=== PATIENT | female | born 1940 | race Caucasian/White ===

== ENCOUNTER 2017-02-08 01:18 | Emergency (ER) | payer MEDICARE, BC ==
[2017-02-08 01:31] VITALS: BP 158/71
--- NOTE | 2017-02-08 02:02 | EDM.PDOC ---
ED HPI GENERAL MEDICAL PROBLEM - General Chief Complaint: General Stated Complaint: HEADACHE BACK PAIN NAUSEA Time Seen by Provider: 02/08/17 01:26 Source of Information: Reports: Patient, Family () History Limitations: Reports: No Limitations - History of Present Illness INITIAL COMMENTS - FREE TEXT/NARRATIVE: The patient states that she developed a sore throat Saturday evening, 2016, then yesterday, , 02/07/2017, she developed a headache, nausea, and generalized pain. She states that her skin hurts, her muscles hurt, and her joints hurt. She has had a slight nonproductive cough. She thinks she might have had a fever, but has not checked her temperature. She is afebrile here in the ED, although feels warm to palpation. She denies recent dyspnea, chest pain , or palpitations. No URI symptoms, such as nasal or sinus congestion, or postnasal drip. No urinary symptoms, such as dysuria, urinary frequency, or urgency. No prior similar symptoms. The patient states that she took Coricidin around 16:00 yesterday afternoon and 20:00 last night. Her symptoms did not improve. The patient states that her daughter is being treated for cough, but the patient does not know what her diagnosis is. The patient did not receive an influenza vaccine this season. The patient's PCP is Dr. Rekha Dobson. Upper Back Pain Score (Numeric/FACES): 9 - Related Data Allergies Allergy/AdvReac Type Severity Reaction Status Date / Time Penicillins Allergy Hives Verified 02/08/17 01:30 Home Meds: Home Meds Aspirin [Ecotrin] 81 mg PO DAILY 03/02/16 [History] Levothyroxine 25 mcg PO DAILY 03/02/16 [History] Losartan [Cozaar] 100 mg PO DAILY 03/02/16 [History] Meloxicam 15 mg PO DAILY #14 tablet 03/02/16 [Rx] Tetrahydrz/Dext 70/Peg 400/Pvp [Eye Drops] 1 drop TOP BEDTIME 03/02/16 [History] amLODIPine [Norvasc] 5 mg PO DAILY 03/02/16 [History] Ondansetron [Zofran ODT] 4 mg PO Q8H PRN #10 tab.dis 02/08/17 [Rx] Oseltamivir [Tamiflu] 1 cap PO BID #9 cap 02/08/17 [Rx] Past Medical History HEENT History: Reports: Glaucoma Cardiovascular History: Reports: Hypertension Gastrointestinal History: Reports: GERD Musculoskeletal History: Reports: Arthritis, Back Pain, Chronic Endocrine/Metabolic History: Reports: Hypothyroidism, Obesity/BMI 30+ - Past Surgical History GI Surgical History: Reports: Cholecystectomy, Colonoscopy Female Surgical History: Reports: Breast Biopsy Musculoskeletal Surgical History: Reports: Other (See Below) Other Musculoskeletal Surgeries/Procedures:: back surgery, ankle surgery Social & Family History - Tobacco Use Smoking Status *Q: Never Smoker Second Hand Smoke Exposure: No - Caffeine Use Caffeine Use: Reports: None - Recreational Drug Use Recreational Drug Use: No - Living Situation & Occupation Living situation: Reports: Occupation: Retired ED ROS GENERAL - Review of Systems Review Of Systems: ROS reveals no pertinent complaints other than HPI. ED EXAM, GENERAL - Physical Exam Exam: See Below Exam Limited By: No Limitations General Appearance: Alert, WD/WN, No Apparent Distress Eye Exam: Bilateral Eye: Normal Inspection Ears: Normal External Exam, Normal Canal, Hearing Grossly Normal, Normal TMs Nose: Normal Inspection, Normal Mucosa, No Blood Throat/Mouth: Normal Inspection, Normal Lips, Normal Teeth, Normal Gums, Normal Oropharynx, Normal Voice Head: Atraumatic, Normocephalic Neck: Normal Inspection, Supple, Non-Tender, Full Range of Motion. No: Lymphadenopathy (L), Lymphadenopathy (R) Respiratory/Chest: No Respiratory Distress, Lungs Clear, Normal Breath Sounds, No Accessory Muscle Use Cardiovascular: Normal Peripheral Pulses, Regular Rate, Rhythm, No Edema, No Gallop, No JVD, No Murmur, No Rub Peripheral Pulses: 4+: Radial (L), Radial (R) GI/Abdominal: Normal Bowel Sounds, Soft, Non-Tender, No Organomegaly, No Distention, No Abnormal Bruit, No Mass, Other (Obese) (Female) Exam: Deferred Rectal (Female) Exam: Deferred Back Exam: Normal Inspection, Full Range of Motion, NT Extremities: Normal Inspection, Normal Range of Motion, No Pedal Edema, Normal Capillary Refill Neurological: Alert, Oriented, Normal Cognition, No Motor/Sensory Deficits Psychiatric: Normal Affect Skin Exam: Warm, Dry, Intact, Normal Color, No Rash Course - Vital Signs Last Recorded V/S: Last Vital Signs Temp 37.4 C 02/08/17 01:26 Pulse 96 02/08/17 01:26 Resp 20 02/08/17 01:26 BP 158/71 H 02/08/17 01:26 Pulse Ox 94 L 02/08/17 01:26 - Orders/Labs/Meds Orders: Active Orders 24 hr Category Date Time Status Chest 2V [CR] Stat Exams 02/08/17 01:55 Taken STREP SCRN A RAPID W CULT CONF [RM] Stat Lab 02/08/17 01:52 Results Labs: Laboratory Tests 02/08/17 02/08/17 Range/Units 02:20 02:20 WBC 6.11 (3.98-10.04) K/mm3 RBC 4.26 (3.98-5.22) M/mm3 Hgb 13.6 (11.2-15.7) gm/L Hct 39.9 (34.1-44.9) % MCV 93.7 (79.4-94.8) fl MCH 31.9 (25.6-32.2) pg MCHC 34.1 (32.2-35.5) g/dl RDW Std Deviation 41.0 (36.4-46.3) fL Plt Count 205 (182-369) K/mm3 MPV 10.5 (9.4-12.3) fl Neutrophils % (Manual) 74 H (40-60) % Band Neutrophils % 0 (0-10) % Lymphocytes % (Manual) 7 L (20-40) % Atypical Lymphs % 0 % Monocytes % (Manual) 19 H (2-10) % Eosinophils % (Manual) 0 L (0.7-5.8) % Basophils % (Manual) 0 L (0.1-1.2) Platelet Estimate Adequate RBC Morph Comment Normal Sodium 135 L (136-145) mEq/L Potassium 3.7 (3.5-5.1) mEq/L Chloride 100 (98-107) mEq/L Carbon Dioxide 22 (21-32) mEq/L Anion Gap 16.7 H (5-15) BUN 11 (7-18) mg/dL Creatinine 1.0 (0.55-1.02) mg/dL Est Cr Clr Drug Dosing 34.91 mL/min Estimated GFR (MDRD) 54 (>60) mL/min BUN/Creatinine Ratio 11.0 L (14-18) Glucose 116 H (83-115) mg/dL Calcium 8.8 (8.5-10.1) mg/dL Total Bilirubin 0.4 (0.2-1.0) mg/dL AST 22 (15-37) U/L ALT 26 (14-59) U/L Alkaline Phosphatase 70 (46-116) U/L Total Protein 7.7 (6.4-8.2) g/dl Albumin 3.8 (3.4-5.0) g/dl Globulin 3.9 gm/dL Albumin/Globulin Ratio 1.0 (1-2) Meds: Medications Discontinued Medications Generic Name Dose Route Start Last Admin Trade Name Freq PRN Reason Stop Dose Admin Ondansetron HCl 4 mg 02/08/17 03:28 02/08/17 03:32 Zofran Odt PO 02/08/17 03:29 4 mg ONETIME ONE Administration Oseltamivir Phosphate 75 mg 02/08/17 02:16 02/08/17 02:22 Tamiflu PO 02/08/17 02:17 75 mg ONETIME STA Administration - Re-Assessments/Exams Free Text/Narrative Re-Assessment/Exam: 02/08/17 02:17 The patient is positive for both Influenza A and Influenza B. Because her symptoms started less than 48 hours ago, I will start her on oral Tamiflu. 02/08/17 02:20 Two-view chest radiograph appears to be grossly normal. Cardiac silhouette is within normal limits. No pulmonary vascular congestion. No pleural effusions. No focal infiltrate. No pneumothorax. Formal read per the Radiologist pending. 02/08/17 02:56 Notified that the CMP will be delayed, as the laboratory machine is down. Someone is coming in to repair it. 02/08/17 04:44 The patient's chemistry panel looks good. I will discharge her home with prescriptions for both Tamiflu and Zofran. Departure - Departure Time of Disposition: 04:44 Disposition: Home, Self-Care 01 Condition: Fair Clinical Impression: Influenza A, Influenza B - Discharge Information Referrals: Rekha Dobson MD [Primary Care Provider] - Forms: ED Department Discharge Additional Instructions: You were seen in the emergency room for a sore throat, headache, nausea, slight cough, and general body aches. Workup in the ER included blood work, an influenza swab, a rapid strep test, and a chest x-ray. Your influenza test returned positive for both Influenza A and Influenza B. The remainder of your workup was unremarkable. You have been started on the anti-influenza medicine Tamiflu. Take one tablet every 12 hours, as prescribed. Dissolve one tablet of the anti-nausea medicine Zofran on your tongue up to every 8 hours, as needed for nausea/vomiting. You may take [id number] Tylenol or ibuprofen as needed for discomfort. Stay well hydrated. Gatorade or Powerade are best. We recommend that you notify the office of Dr. Dobson of your ER visit and influenza results. If any other problems, please do not hesitate to return to the ER. - My Orders Last 24 Hours: My Active Orders 02/08/17 01:52 STREP SCRN A RAPID W CULT CONF [RM] Stat 02/08/17 01:55 Chest 2V [CR] Stat - Assessment/Plan Last 24 Hours: My Active Orders 02/08/17 01:52 STREP SCRN A RAPID W CULT CONF [RM] Stat 02/08/17 01:55 Chest 2V [CR] Stat
[2017-02-08] MEDS ORDERED: Oseltamivir 75 MG Cap PO STA (02:16)
[2017-02-08] MEDS ORDERED: Ondansetron 4 MG/2 ML SDV IVPUSH ONE (03:23)
[2017-02-08] MEDS ORDERED: Ondansetron 4 MG Tab.DIS PO ONE (03:28)
--- NOTE | 2017-02-08 08:38 | CR ---
Chest: Two views of the chest were obtained. Comparison: Prior chest x-ray 03/02/16. Heart size is normal. Tortuous thoracic aorta is seen. Lungs are clear. Mild degenerative change is noted within the spine with slight scoliosis. Impression: 1. Incidental findings. Nothing acute is seen on two-view chest x-ray. Diagnostic code #2
== END 2017-02-08 05:00 | disposition home or self-care (01) ==
LOC: JD.ED 01:18
DX: J10.1 Influenza due to other identified influenza virus with other respiratory manifestations (principal); I10 Essential (primary) hypertension; K21.9 Gastro-esophageal reflux disease without esophagitis; Z88.0 Allergy status to penicillin; Z79.82 Long term (current) use of aspirin; Z79.899 Other long term (current) drug therapy
CPT/HCPCS: 36415; 71020; 80053; 85025; 87081; 87430; 87804; 99284; A9270; 99283

== ENCOUNTER 2020-10-31 09:01 | Day surgery (SDC) | payer MEDICARE, BC ==
[~2020-10-31 09:01] MED LIST: Lactated Ringers 1,000 ML IV SCH; Lidocaine 1%/Sod Bicarbonate in NS 8.4% 1 ML Syringe IDERM PRN; Morphine 8 MG, EPINEPHrine 0.3 MG, Cefuroxime 750 MG, Ketorolac 30 MG, Sodium Chloride ... PRN; Sodium Chloride 0.9% 10 ML Syringe FLUSH PRN
--- NOTE | 2020-10-31 09:24 | PCM.SN.2 ---
- Free Text/Narrative Note: Anesthesia Note: Right selective femoral nerve block at the adductor canal for post-procedure pain control under US guidance requested by Dr. Leung. Time Out: 1242 Start: 1242 End: 1245 Chart reviewed. Consent signed. Questions answered. Appropriate monitors applied. Time out performed. Right mid-shaft femur identified with ultrasound, scanning medially of femur, the femoral artery in the adductor canal visualized, and the femoral nerve located laterally to the artery. The skin was prepped lateral to the ultrasound probe with chlorahexadine times two. The 21ga 4 insulated block needle was inserted under direct ultrasound guidance into the adductor canal. 25 mL of 0.5% ropivacaine with 1:200,000 epinephrine was injected circumferentially around the nerve with intermittent negative aspiration noted. Patient tolerated the procedure well. Sterile technique noted along with sterile gloves, mask, and sterile probe cover. See picture on progress note and vital signs on nurses notes. Block completed in PACU. Sonya Fried CRNA
[2020-10-31] MEDS ORDERED: Ropivacaine 0.5% 5 MG/ML 30 ML SDV ONE (09:26)
[2020-10-31] MEDS ORDERED: EPINEPHrine 1 MG/ML SDV ONE (09:26)
[2020-10-31] MEDS ORDERED: Lactated Ringers 1,000 ML ONE ×2 (09:34→11:48)
[2020-10-31] MEDS ORDERED: Propofol 200 MG/20 ML SDV ONE (09:34)
[2020-10-31] MEDS ORDERED: Ondansetron 4 MG/2 ML SDV ONE (09:34)
[2020-10-31] MEDS ORDERED: ceFAZolin 1 GM Vial ONE (09:34)
[2020-10-31] MEDS ORDERED: fentaNYL 100 MCG/2 ML SDV ONE (09:34)
[2020-10-31] MEDS ORDERED: Ketamine 500 mg/10 ML MDV ONE (09:35)
[2020-10-31] MEDS ORDERED: Midazolam 1 MG/ML 2 ML SDV ONE (09:35)
--- NOTE | 2020-10-31 09:56 | PCM.PREANE ---
Preanesthetic Assessment - Procedure Proposed Procedure: Right Total Knee Arthroplasty with left knee steroid injection - Anesthesia/Transfusion/Family Hx Anesthesia History: Prior Anesthesia Reaction Type of Anesthesia Reaction: Excessive Nausea/Vomiting Family History of Anesthesia Reaction: No Transfusion History: No Prior Transfusion(s) Intubation History: Unknown - Review of Systems General: No Symptoms Pulmonary: No Symptoms (ETOH: rarely) Cardiovascular: No Symptoms (CAD, Cardiac dysrhythmia/HTN, elevated lipids/history of heart ablation in 1997, Heart Cath in 2006) Gastrointestinal: No Symptoms (GERD-controlled) Neurological: No Symptoms (L4-L5 back surgery in ), Dizziness (occasionally.) Other: Reports: Thyroid Problems (hypothyroid) - Physical Assessment NPO Status Date: 10/30/20 NPO Status Time: 22:00 Vital Signs: Last Vital Signs Temp 36.7 C 10/31/20 09:05 Pulse 81 10/31/20 09:05 Resp 16 10/31/20 09:05 BP 116/55 L 10/31/20 09:05 Pulse Ox 97 10/31/20 09:05 Height: 1.52 m Weight: 83.6 kg ASA Class: 3 Mental Status: Alert & Oriented x3 Airway Class: Mallampati = 2 Dentition: Reports: Normal Dentition, Caries Thyro-Mental Finger Breadths: 3 Mouth Opening Finger Breadths: 3 ROM/Head Extension: Full Lungs: Clear to Auscultation, Normal Respiratory Effort Cardiovascular: Regular Rate, Regular Rhythm, No Murmurs - Lab Values: Laboratory Last Values SARS-CoV-2 RNA (SOFI) Cancelled 07/22/20 12:49 All labs reviewed and noted and within acceptable ranges to proceed with scheduled procedure. - Imaging/EKG Impressions: CXR: no acute abnormality EKG:SR rate= 75 - Allergies Allergies/Adverse Reactions: Allergies Allergy/AdvReac Type Severity Reaction Status Date / Time NATHANIEL Inhibitors Allergy Cannot Verified 10/31/20 09:47 Remember atorvastatin [From Lipitor] Allergy Cannot Verified 10/31/20 09:47 Remember hydrochlorothiazide Allergy Cannot Verified 10/31/20 09:47 Remember metoprolol [From Toprol XL] Allergy Cannot Verified 10/31/20 09:47 Remember Penicillins Allergy Hives Verified 10/31/20 09:47 rosuvastatin [From Crestor] Allergy Cannot Verified 10/31/20 09:47 Remember - Anesthesia Plan Pre-Op Medication Ordered: Other (scopalamine patch 1.5mg behind right ear at 1001.) - Acknowledgements Anesthesia Type Planned: Spinal (Right adductor canal block under US guidance for post operative pain control requested by Dr. Leung.) Pt an Appropriate Candidate for the Planned Anesthesia: Yes Alternatives and Risks of Anesthesia Discussed w Pt/Guardian: Yes Pt/Guardian Understands and Agrees with Anesthesia Plan: Yes PreAnesthesia Questionnaire HEENT History: Reports: Allergic Rhinitis, Glaucoma, Impaired Vision, Sinusitis, Other (See Below) Other HEENT History: right tympanic membrane perforation Cardiovascular History: Reports: Arrhythmia, CAD, High Cholesterol, Hypertension Respiratory History: Reports: None Gastrointestinal History: Reports: GERD, Other (See Below) Other Gastrointestinal History: esophagitis Genitourinary History: Reports: None SAFETY ASSISTANT History: Reports: None Musculoskeletal History: Reports: Arthritis, Back Pain, Chronic, Osteoarthritis, Osteoporosis Neurological History: Reports: Other (See Below) Other Neuro History: dizziness Psychiatric History: Reports: None Endocrine/Metabolic History: Reports: Hypothyroidism, Obesity/BMI 30+, Vitamin D Deficiency Hematologic History: Reports: None Immunologic History: Reports: None Oncologic (Cancer) History: Reports: None Dermatologic History: Reports: None - Infectious Disease History Infectious Disease History: Reports: Novel Coronavirus - Past Surgical History HEENT Surgical History: Reports: Cataract Surgery, Tonsillectomy Cardiovascular Surgical History: Reports: Cardiac Ablation Respiratory Surgical History: Reports: None GI Surgical History: Reports: Cholecystectomy, Colonoscopy Female Surgical History: Reports: Breast Biopsy, D&C Male Surgical History: Reports: None Endocrine Surgical History: Reports: None Neurological Surgical History: Reports: Other (See Below) Other Neurological Surgeries/Procedures: L4L5 back sx Musculoskeletal Surgical History: Reports: Other (See Below) Other Musculoskeletal Surgeries/Procedures:: back surgery, ankle surgery Oncologic Surgical History: Reports: None Dermatological Surgical History: Reports: None - SUBSTANCE USE Tobacco Use Status *Q: Never Tobacco User Recreational Drug Use History: No - HOME MEDS Home Medications: Home Meds Aspirin [Ecotrin EC] 81 mg PO DAILY 03/02/16 [History] Levothyroxine 25 mcg PO DAILY 03/02/16 [History] Losartan [Cozaar] 50 mg PO DAILY 03/02/16 [History] amLODIPine [Norvasc] 5 mg PO DAILY 03/02/16 [History] Aspirin [Aspirin EC] 325 mg PO BID #30 tab 10/28/20 [Rx] Hydrocodone/Acetaminophen [HYDROcodone-Acetaminophen 5-325 MG] 1 - 2 each PO Q4H PRN #40 tablet 10/28/20 [Rx] Calcium Carb/Vitamin D3/Vit K1 [Calcium + D Soft Chewable Tab] 1 tab PO DAILY 10/30/20 [History] Cholecalciferol (Vitamin D3) [Vitamin D3] 5,000 unit PO DAILY 10/30/20 [History] Latanoprost [Xalatan 0.005% Ophth Soln] 1 drop EYEBOTH DAILY 10/30/20 [History] Omeprazole Magnesium [Prilosec Otc] 20 mg PO DAILY 10/30/20 [History] Simvastatin [Zocor] 10 mg PO DAILY 10/30/20 [History] Spironolactone [Aldactone] 25 mg PO DAILY 10/30/20 [History] Vitamin E 200 unit PO DAILY 10/30/20 [History] - CURRENT (IN HOUSE) MEDS Current Meds: Current Medications Hydrocodone Bitart/Acetaminophen (Acetaminophen/Hydrocodone 325-5 Mg Tab) 1 - 2 tab PO Q4H PRN PRN Reason: Pain Morphine Sulfate 8 mg/Epinephrine HCl 0.3 mg/Cefuroxime Sodium 750 mg/Ketorolac Tromethamine 30 mg/Sodium Chloride 7.9 ml 0 mg .XX ASDIRECTED PRN PRN Reason: Pain Stop: 10/31/20 16:00 Lactated Ringer's (Ringers, Lactated) 1,000 mls @ 125 mls/hr IV ASDIRECTED JAVIER Stop: 10/31/20 23:00 Last Admin: 10/31/20 09:15 Dose: 125 mls/hr Documented by: Lidocaine/Sodium Bicarbonate (Lidocaine 1%/Sod Bicarbonate In Ns 8.4% 1 Ml Syringe) 0.25 ml IDERM ONETIME PRN PRN Reason: Prior to IV Start Stop: 10/31/20 18:00 Last Admin: 10/31/20 09:15 Dose: 0.25 ml Documented by: Sodium Chloride (Sodium Chloride 0.9% 10 Ml Syringe) 10 ml FLUSH ASDIRECTED PRN PRN Reason: Keep Vein Open Stop: 10/31/20 18:00 Discontinued Medications Cefazolin Sodium (Cefazolin 1 Gm Vial) Confirm Administered Dose 2 gm .ROUTE .STK-MED ONE Stop: 10/31/20 09:35 Morphine Sulfate 8 mg/Epinephrine HCl 0.3 mg/Cefuroxime Sodium 750 mg/Ketorolac Tromethamine 30 mg/Sodium Chloride 7.9 ml 0 mg .XX ASDIRECTED PRN PRN Reason: Pain Stop: 07/25/20 23:00 Epinephrine HCl (Epinephrine 1 Mg/Ml Sdv) Confirm Administered Dose 1 mg .ROUTE .STK-MED ONE Stop: 10/31/20 09:27 Fentanyl (Fentanyl 100 Mcg/2 Ml Sdv) Confirm Administered Dose 100 mcg .ROUTE .STK-MED ONE Stop: 10/31/20 09:35 Lactated Ringer's (Ringers, Lactated) 1,000 mls @ 125 mls/hr IV ASDIRECTED JAVIER Stop: 07/25/20 23:00 Lactated Ringer's (Ringers, Lactated) Confirm Administered Dose 1,000 mls @ as directed .ROUTE .STK-MED ONE Stop: 10/31/20 09:35 Ketamine HCl (Ketamine 500 Mg/10 Ml Mdv) Confirm Administered Dose 500 mg .ROUTE .STK-MED ONE Stop: 10/31/20 09:36 Lidocaine/Sodium Bicarbonate (Lidocaine 1%/Sod Bicarbonate In Ns 8.4% 1 Ml Syringe) 0.25 ml IDERM ONETIME PRN PRN Reason: Prior to IV Start Stop: 07/25/20 23:00 Midazolam HCl (Midazolam 1 Mg/Ml 2 Ml Sdv) Confirm Administered Dose 2 mg .ROUTE .STK-MED ONE Stop: 10/31/20 09:36 Miscellaneous Medication (Phenylephrine Hcl In 0.9% Nacl 1 Mg/10 Ml Syringe) Confirm Administered Dose 1 mg .ROUTE .STK-MED ONE Stop: 10/31/20 09:35 Ondansetron HCl (Ondansetron 4 Mg/2 Ml Sdv) Confirm Administered Dose 4 mg .ROUTE .STK-MED ONE Stop: 10/31/20 09:35 Propofol (Propofol 200 Mg/20 Ml Sdv) Confirm Administered Dose 400 mg .ROUTE .STK-MED ONE Stop: 10/31/20 09:35 Ropivacaine (Ropivacaine 0.5% 5 Mg/Ml 30 Ml Sdv) Confirm Administered Dose 30 ml .ROUTE .STK-MED ONE Stop: 10/31/20 09:27 Sodium Chloride (Sodium Chloride 0.9% 10 Ml Syringe) 10 ml FLUSH ASDIRECTED PRN PRN Reason: Keep Vein Open Stop: 07/25/20 23:00
[2020-10-31] MEDS ORDERED: Acetaminophen/HYDROcodone 325-5 MG Tab PO PRN (10:00)
[2020-10-31] MEDS ORDERED: Vancomycin 1 GM SDV ONE (10:07)
[2020-10-31] MEDS ORDERED: Triamcinolone Acetonide 40 MG/ML 1 ML SDV ONE (10:07)
[2020-10-31] MEDS ORDERED: Bupivacaine 0.25% 10 ML SDV ONE (10:07)
[2020-10-31] MEDS ORDERED: Scopolamine 1.5 MG Transdermal Patch TOP ONE (10:30)
[2020-10-31] MEDS ORDERED: fentaNYL 100 MCG/2 ML SDV IVPUSH PRN (11:28)
[2020-10-31] MEDS ORDERED: ePHEDrine 50 MG/ML SDV IVPUSH PRN (11:28)
[2020-10-31] MEDS ORDERED: Ondansetron 4 MG/2 ML SDV IVPUSH PRN (11:28)
[2020-10-31] MEDS ORDERED: HYDROmorphone 0.5 MG/0.5 ML Syringe IVPUSH PRN (11:28)
[2020-10-31] MEDS ORDERED: diphenhydrAMINE 50 MG/ML SDV IVPUSH PRN (11:28)
[2020-10-31] MEDS ORDERED: ePHEDrine 50 MG/ML SDV ONE (11:37)
[2020-10-31] MEDS ORDERED: HYDROmorphone 0.5 MG/0.5 ML Syringe ONE (12:08)
--- NOTE | 2020-10-31 13:03 | PCM.POSTAN ---
POST ANESTHESIA ASSESSMENT - MENTAL STATUS Mental Status: Alert - VITAL SIGNS Vital Signs: Last Vital Signs Temp 97.6 10/31/20 1233 Pulse 95 10/31/20 1233 Resp 16 10/31/20 1233 BP 110/43 10/31/20 1233 Pulse Ox 92% room air 10/31/20 1233 - RESPIRATORY Respiratory Status: Respiratory Rate WNL, Airway Patent, O2 Saturation Stable, Supplemental Oxygen - CARDIOVASCULAR CV Status: Pulse Rate WNL, Blood Pressure Stable - GASTROINTESTINAL GI Status: No Symptoms - POST OP HYDRATION Hydration Status: Adequate & Stable
--- NOTE | 2020-10-31 13:05 | PCM48HPAN ---
Post Anesthesia Note - EVALUATION WITHIN 48HRS OF ANESTHETIC Vital Signs in Normal Range: Yes Patient Participated in Evaluation: Yes Respiratory Function Stable: Yes Airway Patent: Yes Cardiovascular Function Stable: Yes Hydration Status Stable: Yes Pain Control Satisfactory: Yes Nausea and Vomiting Control Satisfactory: Yes Mental Status Recovered: Yes Vital Signs: Last Vital Signs Temp 36.4 C 10/31/20 12:33 Pulse 81 10/31/20 09:05 Resp 16 10/31/20 12:33 BP 110/43 L 10/31/20 12:33 Pulse Ox 92 L 10/31/20 12:33
--- NOTE | 2020-10-31 14:08 | CR ---
Right knee: AP and crosstable lateral views of the right knee were obtained. Comparison: Prior right knee CT study of 07/12/20. Knee prosthesis and patellar prosthesis is seen. Components are aligned. Underlying bony structures show nothing else acute. Soft tissue air is noted. Impression: 1. Satisfactory radiographic appearance of recently placed right knee prostheses. Diagnostic code #2
[2020-10-31] MEDS ORDERED: Ondansetron 4 MG Tab.DIS PO PRN (15:50)
[2020-10-31] MEDS ORDERED: Albuterol 0.083% 2.5 MG/3 ML Neb Soln NEB ONE (16:27)
[2020-10-31] MEDS ORDERED: Morphine 2 MG/ML SYRINGE IVPUSH PRN (19:36)
[2020-10-31] MEDS ORDERED: Naloxone 0.4 MG/ML SDV IVPUSH PRN (19:36)
[2020-10-31] MEDS: Acetaminophen/HYDROcodone 325-5 MG Tab PO PRN (20:41)
[2020-10-31] MEDS ORDERED: Calcium Carbonate 500 MG Tab.Chew PO ONE (23:30)
[2020-11-01] MEDS ORDERED: Pantoprazole 40 MG Tab.CR PO SCH (06:00)
[2020-11-01] MEDS ORDERED: Levothyroxine 25 MCG Tab PO SCH (06:00)
[2020-11-01] MEDS: Acetaminophen/HYDROcodone 325-5 MG Tab PO PRN (08:01)
[2020-11-01] MEDS ORDERED: Cholecalciferol (Vitamin D3) 5,000 UNIT Cap PO SCH (09:00)
[2020-11-01] MEDS ORDERED: Aspirin 81 MG Tab.EC PO SCH (09:00)
[2020-11-01] MEDS ORDERED: amLODIPine 5 MG Tab PO SCH (09:00)
[2020-11-01] MEDS ORDERED: VITAMIN E 200 UNIT PO SCH (09:00)
[2020-11-01] MEDS ORDERED: Spironolactone 25 MG Tab PO SCH (09:00)
[2020-11-01] MEDS ORDERED: Rivaroxaban 10 MG Tab PO SCH (09:00)
[2020-11-01] MEDS ORDERED: Losartan 50 MG Tab PO SCH (09:00)
[2020-11-01] MEDS ORDERED: Simvastatin 10 MG Tab PO SCH (09:00)
[2020-11-01 11:49] VITALS: BP 123/46; PULSE 76
[2020-11-01] MEDS ORDERED: Latanoprost 0.005% Ophth Soln 2.5 ML Bottle EYEBOTH SCH (21:00)
--- NOTE | 2020-11-10 08:10 | PCM.OPNOTE ---
- General Post-Op/Procedure Note Date of Surgery/Procedure: 10/31/20 Operative Procedure(s): right total knee arthroplasty with left knee corticosteroid injection Pre Op Diagnosis: bilateral knee osteoarthrosis Post-Op Diagnosis: Same Anesthesia Technique: Local, MAC, Spinal Primary Surgeon: Elliott Leung Anesthesia Provider: Sonya Fried Deputy [employer]: Katiuska Purdy Deputy [employer]: Becky Peace EBJenise in mLs: 5 Complications: None Condition: Good Free Text/Narrative:: 4 3 9mm 32x10
--- NOTE | 2020-11-10 09:27 | OR ---
DATE OF OPERATION: 10/31/2020 SURGEON: Elliott Leung MD OPERATION PERFORMED: Right total knee arthroplasty with left knee corticosteroid injection. PREOPERATIVE DIAGNOSIS: Bilateral knee osteoarthrosis. POSTOPERATIVE DIAGNOSIS: Bilateral knee osteoarthrosis. ANESTHESIA: Local MAC with spinal. ANESTHESIA PROVIDER: Sonya Fried CRNA ASSISTANTS: Katiuska Purdy PA-C; and Becky Graham RN. ESTIMATED BLOOD LOSS: 5 mL. COMPLICATIONS: None. CONDITION: Stable. IMPLANTS: 1. Charlotte size 4 cemented PS femur. 2. Liu size 3 cemented [place] tibial baseplate. 3. Liu size 9 mm PS X3 polyethylene. 4. Charlotte size 32 x 10 mm cemented asymmetric patella. DESCRIPTION OF PROCEDURE: The patient was identified in the preop holding area. Proper site was marked and identified by the surgeon. The patient was taken back to the operating theater where after adequate anesthesia, the patient's right lower extremity had a nonsterile tourniquet applied and it was sterilely prepped and draped in the usual sterile fashion. OR time-out was performed. The patient received 2 g IV Ancef. Leg clancy was then applied to the right lower extremity. At this time, the right lower extremity was exsanguinated. Tourniquet was insufflated to 250 mmHg . Standard anterior incision was made. Medial parapatellar arthrotomy was created. Deep fibers of the MCL were raised as well as anterior fat pad was resected. Attention was turned to the patella. Patella measured a 23 mm; it was resected to a 13 mm for a 32 x 10 mm patella. Drill holes were then drilled. Attention was then turned to the femur. Two 4.0 pins were placed intra-incisionally for the [place] Dayday robotic array and then 2 more were placed on the tibia 3 fingerbreadths below the tibial tubercle. The [place] Dayday robotic arrays were placed on both the femur and the tibia then at this time as well as checkpoints on the femur and tibia. Hip center rotation was then obtained. The medial and lateral malleoli were marked. At this time, 40 points were obtained off the femur and the tibia for the [place] Dayday robotic plan. The patient's knee was brought to full extension. Varus and valgus stresses were applied and then into 90 degrees of flexion with a curved osteotome. Varus and valgus stresses were applied. At this time, Aframe robotic plan was done to 19 mm gaps in both flexion and extension. [place] Knock Knock robotic arm was then brought in. A straight saw blade was then used for the tibial cut, the anterior femoral cut, the anterior chamfer cut, and the posterior femoral cut. All bony fragments were removed. Saw blade was then switched out and the distal femoral cut as well as the posterior chamfer cut was completed. At this time, medial and lateral menisci were resected as well as any posterior osteophytes. A size 3 mm trial tibia was then placed, size 4 mm trial femur was placed, and a size 9 mm PS X3 polyethylene trial liner was placed. The patient's knee was brought to full extension and flexion. Varus and valgus stresses were applied, was found to be stable with no instability. No signs of liftoff or loosening were noted. At this time, box cut was completed on the femur. The pins were removed from the femur and the tibia as well as the arrays and the checkpoints. Cement was mixed on the back table. All cut surfaces were irrigated with pulse lavage irrigation with Ancef and then completely dried. Once the cement was ready, the Liu size 3 mm cemented [place] tibial base plate having been previously stamped and drilled, was then cemented in place on the tibia. The Liu size 4 mm cemented femur was cemented into place. The patient had a Charlotte size 9 mm PS X3 polyethylene insert placed. The patient's knee was brought to full extension. Excess cement was removed. A Liu size 32 x 10 mm cemented asymmetric patella was then cemented into place. 1 L of pulse lavage irrigation with Ancef was irrigated through the knee along with 400 mL of IrriSept irrigation. Periarticular injection was completed. Topical tranexamic acid and vancomycin powder were applied. A #2 barbed suture was used for closure of the medial parapatellar arthrotomy in flexion. 2-0 Vicryl and Stratafix were used for subcutaneous closure. Prineo was used for cutaneous closure. The patient had a sterile soft dressing applied. The tibial holes were closed with nylon, and this was also covered with a sterile soft dressing. The patient had an NATHANIEL wrap applied and was sent to PACU in stable condition. The patient tolerated the procedure well. After this was completed, and under sterile technique, 2 mL of 40 mg Kenalog, 4 mL of 0.25% Marcaine were injected in the patient's left knee. She tolerated all procedures well. MMODAL /[id number]
== END 2020-11-01 11:45 | disposition home or self-care (01) ==
LOC: JD.SDS 09:01 → JD.OB 18:00 → JD.SDS 11-01 11:45
PROVIDERS: ATTEND Orthopaedic Surgery
DX: M17.0 Bilateral primary osteoarthritis of knee (principal); E78.00 Pure hypercholesterolemia, unspecified; I10 Essential (primary) hypertension; E55.9 Vitamin D deficiency, unspecified; M81.0 Age-related osteoporosis without current pathological fracture; E03.9 Hypothyroidism, unspecified; I25.10 Atherosclerotic heart disease of native coronary artery without angina pectoris; Z79.899 Other long term (current) drug therapy; Z79.890 Hormone replacement therapy; Z88.0 Allergy status to penicillin; Z88.8 Allergy status to other drugs, medicaments and biological substances; Z79.82 Long term (current) use of aspirin; Z98.890 Other specified postprocedural states
CPT/HCPCS: 20610; 27447; 73560; 94760; 97110; 97116; 97161; A9270; C1713; C1776; J0171; J0690; J0697; J1170; J1885; J2250; J2270; J2370; J2405; J2704; J2795; J3010; J3301; J3370; J3490; J7120; 01402; 64450; 76942; 99100; U0002

== ENCOUNTER 2021-03-29 18:42 | Emergency (ER) | payer MEDICARE, BC ==
[2021-03-29 19:19] VITALS: BP 161/69; PULSE 97
[2021-03-29] MEDS ORDERED: Ondansetron 4 MG/2 ML SDV IVPUSH ONE (19:27)
[2021-03-29] MEDS ORDERED: Iopamidol 612 MG/ML 100 ML Bottle IVPUSH ONE (20:44)
[2021-03-29] MEDS ORDERED: Sodium Chloride 0.9% 10 ML Syringe FLUSH ONE (20:44)
[2021-03-29] MEDS ORDERED: Sodium Chloride 0.9% 100 ML IV SCH (20:45)
== END 2021-03-29 23:12 | disposition home or self-care (01) ==
LOC: JD.ED 18:42
DX: R10.11 Right upper quadrant pain (principal); R10.31 Right lower quadrant pain; I10 Essential (primary) hypertension; K21.9 Gastro-esophageal reflux disease without esophagitis; M19.90 Unspecified osteoarthritis, unspecified site; E03.9 Hypothyroidism, unspecified; E66.9 Obesity, unspecified; Z68.36 Body mass index [BMI] 36.0-36.9, adult; Z86.16 Personal history of COVID-19; Z88.8 Allergy status to other drugs, medicaments and biological substances; Z88.5 Allergy status to narcotic agent; Z88.0 Allergy status to penicillin; Z79.82 Long term (current) use of aspirin; Z79.899 Other long term (current) drug therapy
CPT/HCPCS: 36415; 74177; 74177-26; 80053; 81001; 83690; 85025; 99284-25; Q9967

== ENCOUNTER 2021-03-30 16:18 | Emergency (ER) | payer MEDICARE, BC ==
[2021-03-30 17:00] VITALS: BP 131/66; PULSE 91
[2021-03-30] MEDS ORDERED: Sodium Chloride 0.9% 10 ML Syringe FLUSH PRN (18:10)
[2021-03-30] MEDS ORDERED: Sodium Chloride 0.9% 1,000 ML IV SCH (18:15)
[2021-03-30] MEDS ORDERED: Sodium Chloride 0.9% 10 ML Syringe FLUSH ONE (18:24)
[2021-03-30] MEDS ORDERED: Iopamidol 612 MG/ML 100 ML Bottle IVPUSH ONE (18:24)
[2021-03-30] MEDS ORDERED: Sodium Chloride 0.9% 100 ML IV SCH (18:30)
[2021-03-30] MEDS ORDERED: Magnesium Citrate Solution 296 ML Bottle PO ONE (20:00)
[2021-03-30] MEDS ORDERED: Ketorolac 30 MG/ML SDV IVPUSH ONE (20:10)
== END 2021-03-30 20:48 | disposition home or self-care (01) ==
LOC: JD.ED 16:18
DX: K59.09 Other constipation (principal); I10 Essential (primary) hypertension; K21.9 Gastro-esophageal reflux disease without esophagitis; E03.9 Hypothyroidism, unspecified; E66.9 Obesity, unspecified; Z68.36 Body mass index [BMI] 36.0-36.9, adult; Z88.0 Allergy status to penicillin; Z88.8 Allergy status to other drugs, medicaments and biological substances; Z79.82 Long term (current) use of aspirin; Z79.899 Other long term (current) drug therapy
CPT/HCPCS: 36415; 74177; 80053; 81001; 83690; 85025; 86140; 96374; 99284; A9270; J1885; J7030; Q9967

== ENCOUNTER 2023-12-20 21:56 | Emergency (ER) | payer MEDICARE, OTHER ==
[2023-12-20 22:31] LABS: APPEARANCE,URINE CLEAR (Clear); BILIRUBIN,URINE NEGATIVE (Negative); COLOR,URINE PINK (Yellow); GLUCOSE,URINE NEGATIVE (Negative); KETONES,URINE NEGATIVE (Negative); LEUKOCYTE ESTERASE,URINE 1+ (Negative); NITRITE,URINE NEGATIVE (Negative); OCCULT BLOOD,URINE 3+ (Negative); PH,URINE 6.5 (5.0-8.0); PROTEIN,URINE 2+ (Negative); UROBILINOGEN,URINE 0.2 (0.2-1.0)
[2023-12-20] MEDS: Nitrofurantoin Monohydrate/Macrocrystalline 100 MG Cap PO ONE (22:31)
[2023-12-20 22:50] LABS: RBC,URINE 75-100 /hpf (0-5); SQUAMOUS EPITHELIAL CELLS,UR 0-5 /hpf (0-5); WBC CLUMPS,URINE FEW /hpf (NOT SEEN); WBC,URINE >100 /hpf (0-5)
[2023-12-20 22:51] LABS: BACTERIA,URINE FEW /hpf (FEW); MUCUS,URINE NOT SEEN /hpf (FEW)
[2023-12-20 23:29] VITALS: BP 154/75; PULSE 71
== END 2023-12-20 23:23 | disposition home or self-care (01) ==
LOC: JD.ED 21:56
DX: N39.0 Urinary tract infection, site not specified (principal); I10 Essential (primary) hypertension; K21.9 Gastro-esophageal reflux disease without esophagitis; E03.9 Hypothyroidism, unspecified; E66.9 Obesity, unspecified; Z68.37 Body mass index [BMI] 37.0-37.9, adult; Z86.16 Personal history of COVID-19; Z90.49 Acquired absence of other specified parts of digestive tract; Z79.82 Long term (current) use of aspirin; Z79.899 Other long term (current) drug therapy; Z88.8 Allergy status to other drugs, medicaments and biological substances; Z88.1 Allergy status to other antibiotic agents; Z88.0 Allergy status to penicillin
CPT/HCPCS: 81001; 87086; 87088; 87186; 99283; A9270-GY